=== PATIENT | female | born 1985 | race Caucasian/White ===

== ENCOUNTER → 2016-11-08 | Outpatient (REF) | payer OTHER | LOC: M SFHCLERA 14:02 | PROVIDERS: ATTEND Physician Assistant | DX: J02.9 Acute pharyngitis, unspecified (principal) ==

== ENCOUNTER → 2019-07-30 | Outpatient (REF) | payer OTHER | LOC: M SFHCLERA 19:43 | PROVIDERS: ATTEND Physician Assistant | DX: M54.5 Low back pain (principal); J02.9 Acute pharyngitis, unspecified | CPT/HCPCS: 81002; 81025; 87086; 87880; 96372; G0463; J1885 ==